=== PATIENT | male | born 1985 | race Two or more races ===

== ENCOUNTER 2020-10-15 03:59 | Emergency (ER) | payer OTHER ==
[~2020-10-15] VITALS: Ht 172.7 cm; Wt 83.9 kg
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
[2020-10-15] MEDS ORDERED: HYDROCODONE/APAP 5/325MG TABLET PO ONE (04:30)
--- NOTE | 2020-10-15 05:06 | NUR ---
pt in radiology for ct head
--- NOTE | 2020-10-15 05:16 | NUR ---
pt returned from radiology. pt unable to complete ct d/t not wanting to lay still. dr. vivar spoke to pt regarding plan of care. Patient does not wish to proceed with medical care recommended by Dr. Vivar. Patient given information related to possible complications, up to and including , which could occur as a result of leaving the hospital at this time. Patient verbalizes understanding of risks involved due to leaving against medical advice. Patient has signed AMA form.
[2020-10-15] MEDS ORDERED: HYDROCODONE/APAP 5/325MG TABLET ONE (05:26)
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
--- NOTE | 2020-10-15 05:37 | NUR ---
[facility] CHANGED THEIR MIND, TOOK PT IN CUSTODY. PT CLEARED FOR DISCHARGE PER DR. ELY, PT READ AMA FORM AND SIGNED WILLINGLY. PT AMBULATORY WITH STEADY GAIT.
[2020-10-15 05:40] VITALS: BP 110/68
== END 2020-10-15 05:41 ==
LOC: ER 04:03
DX: S00.83XA Contusion of other part of head, initial encounter (principal); S80.01XA Contusion of right knee, initial encounter; M54.6 Pain in thoracic spine; V49.49XA Driver injured in collision with other motor vehicles in traffic accident, initial encounter; Y93.89 Activity, other specified; Y92.488 Other paved roadways as the place of occurrence of the external cause; Y99.8 Other external cause status
CPT/HCPCS: 71045; 73564; 99284; A6403